=== PATIENT | female | born 1990 | race Asian ===

== ENCOUNTER 2018-07-17 01:57 | Inpatient (IN) | payer BC ==
[~2018-07-17] VITALS: Ht 152.4 cm; Wt 45.0 kg
[~2018-07-17 01:57] MED LIST: IBUP-1222 PO
[2018-07-17] MEDS ORDERED: OXYTOCIN 30U/ 0.9% NaCL 500ML 500 ML ONE (02:04)
[2018-07-17] MEDS ORDERED: NEWBORN KIT ONE (02:04)
[2018-07-17] MEDS ORDERED: OXYTOCIN 30U/ 0.9% NaCL 500ML 500 ML IV ONE (02:20)
[2018-07-17] MEDS ORDERED: AMPICILLIN 2 GM in SODIUM CHLORIDE 0.9% 100 ML IVPB STA (02:20)
[2018-07-17] MEDS ORDERED: LACTATED RINGERS 1,000 ML IV SCH (02:20)
[2018-07-17] MEDS ORDERED: FENTANYL PF 100 MCG/2ML IV PRN (02:30)
[2018-07-17] MEDS ORDERED: FENTANYL PF 100 MCG/2ML IVPush PRN (02:30)
[2018-07-17] MEDS ORDERED: ONDANSETRON 2MG/ML, 2ML IVPush PRN (02:30)
[2018-07-17] MEDS ORDERED: CALCIUM CARBONATE 500 MG TAB.CHEW PO PRN (02:30)
[2018-07-17 02:38] LABS: BASOPHILS # (AUTO) 0.03 x10^3/uL (0-0.1); BASOPHILS % (AUTO) 0 % (0-1); EOSINOPHILS # (AUTO) 0.08 x10^3/uL (0-0.4); EOSINOPHILS % (AUTO) 1 % (1-7); LYMPHOCYTES # (AUTO) 2.37 x10^3/uL (1-3.4); LYMPHOCYTES % (AUTO) 30 % (22-44); MD NO; MEAN CORPUSCULAR VOLUME 94.3 fL (80-100); MONOCYTES # (AUTO) 0.44 x10^3/uL (0.2-0.8); MONOCYTES % (AUTO) 6 % (2-9); NEUTROPHILS # (AUTO) 4.98 x10^3/uL (1.8-6.8); NEUTROPHILS % (AUTO) 63 % (42-75); PLATELET COUNT 169 x10^3/uL (130-400); RED BLOOD COUNT 4.11 x10^6/uL (3.82-5.3); RED CELL DISTRIBUTION WIDTH 13.4 % (9.6-15.2)
[2018-07-17] MEDS ORDERED: LIDOCAINE 1%, 20ML ONE (02:38)
[2018-07-17] MEDS ORDERED: MISOPROSTOL 200 MCG TABLET ONE (02:38)
[2018-07-17] MEDS ORDERED: IBUPROFEN 600 MG TABLET ONE (03:01)
[2018-07-17] MEDS: OXYTOCIN 30U/ 0.9% NaCL 500ML 500 ML IV SCH ×3 (03:02→23:02)
[2018-07-17] MEDS: IBUPROFEN 600 MG TABLET PO PRN ×2 (03:05→09:21)
[2018-07-17] MEDS ORDERED: METHYLERGONOVINE 0.2 MG/ML IM PRN (03:30)
[2018-07-17] MEDS ORDERED: RHOGAM FROM BLOOD BANK 1 NOTE EA IM/IV ONE (03:30)
[2018-07-17] MEDS ORDERED: CARBOPROST TROMETHAMINE 250 MCG/ML, 1ML IM PRN (03:30)
[2018-07-17] MEDS ORDERED: ACETAMINOPHEN 325 MG TABLET PO PRN (03:30)
[2018-07-17] MEDS ORDERED: OXYcodone/APAP 5/325MG TABLET PO PRN ×2 (03:30)
[2018-07-17] MEDS ORDERED: MEASLES,MUMPS&RUBELLA VACC/PF 0.5 ML SQ PRN (03:30)
[2018-07-17] MEDS ORDERED: MISOPROSTOL 200 MCG TABLET PR PRN (03:30)
[2018-07-17] MEDS ORDERED: DIPH,PERTUSS(ACELL),TET VAC/PF NC IM-VACC PRN (03:30)
[2018-07-17 04:40] VITALS: BP 137/83
[2018-07-17] MEDS ORDERED: AMPICILLIN 1 GM in SODIUM CHLORIDE 0.9% 100 ML IVPB SCH (06:20)
[2018-07-17 08:16] VITALS: BP 121/74
[2018-07-17] MEDS: DOCUSATE 100 MG CAPSULE PO PRN ×2 (09:21→20:38)
[2018-07-17] MEDS: PRENATAL VIT/IRON/FA 1 EACH TABLET PO SCH (09:21)
[2018-07-17 10:37] LABS: MEAN CORPUSCULAR HEMOGLOBIN 31.4 pg (27.0-34.8); MEAN CORPUSCULAR HGB CONC 33.5 g/dL (32.4-35.8); MEAN CORPUSCULAR VOLUME 93.9 fL (80-100); MEAN PLATELET VOLUME 9.4 fL (7.4-10.4); PLATELET COUNT 149 x10^3/uL (130-400); RED BLOOD COUNT 3.87 x10^6/uL (3.82-5.3); RED CELL DISTRIBUTION WIDTH 13.4 % (9.6-15.2)
[2018-07-17 10:56] LABS: BASOPHILS # (AUTO) 0.03 x10^3/uL (0-0.1); BASOPHILS % (AUTO) 0 % (0-1); EOSINOPHILS # (AUTO) 0.05 x10^3/uL (0-0.4); EOSINOPHILS % (AUTO) 0 % (1-7); LYMPHOCYTES # (AUTO) 1.23 x10^3/uL (1-3.4); LYMPHOCYTES % (AUTO) 11 % (22-44); MD SCAN; MONOCYTES # (AUTO) 0.52 x10^3/uL (0.2-0.8); MONOCYTES % (AUTO) 5 % (2-9); NEUTROPHILS # (AUTO) 9.06 x10^3/uL (1.8-6.8); NEUTROPHILS % (AUTO) 83 % (42-75)
[2018-07-17 11:57] VITALS: BP 115/73
[2018-07-17 16:23] VITALS: BP 111/70
[2018-07-17 20:30] VITALS: BP 133/81
[2018-07-18] MEDS: IBUPROFEN 600 MG TABLET PO PRN ×2 (00:19→10:22)
[2018-07-18 00:25] VITALS: BP 116/71
[2018-07-18] MEDS: PRENATAL VIT/IRON/FA 1 EACH TABLET PO SCH (08:30)
[2018-07-18] MEDS: DOCUSATE 100 MG CAPSULE PO PRN (08:51)
[2018-07-18] MEDS: OXYTOCIN 30U/ 0.9% NaCL 500ML 500 ML IV SCH (09:02)
[2018-07-18] MEDS ORDERED: IBUP-1222 PO (09:59)
== END 2018-07-18 10:24 | disposition home or self-care (01) | DRG 807 ==
LOC: LDOP 01:57 → LDIP 02:19 → 2NW 04:09
PROVIDERS: ADMIT Obstetrics & Gynecology; ATTEND Obstetrics & Gynecology
PROC: 10E0XZZ Delivery of Products of Conception, External Approach (ICD-10-PCS; principal; 2018-07-17)
PROC: 0W8NXZZ Division of Female Perineum, External Approach (ICD-10-PCS; 2018-07-17)
DX: O99.824 Streptococcus B carrier state complicating childbirth (principal); Z37.0 Single live birth; Z3A.40 40 weeks gestation of pregnancy
CPT/HCPCS: 36415; 85025; 86850; 86900; 99285; G0378; J0290; J2590; J7120

== ENCOUNTER 2020-05-24 08:22 | Inpatient (IN) | payer BC ==
[~2020-05-24] VITALS: Ht 152.4 cm; Wt 60.0 kg
[2020-05-28] MEDS ORDERED: PREN1TAB60 PO (12:28)
[2020-05-28] MEDS ORDERED: METOCLOPRAMIDE 5 MG/ML, 2ML IVPush PRN (12:30)
[2020-05-28] MEDS ORDERED: SODIUM CITRATE/CITRIC ACID 30 ML UDC PO PRN (12:30)
[2020-05-28] MEDS ORDERED: OXYTOCIN 30U/ 0.9% NaCL 500ML 500 ML IV ONE (12:30)
[2020-05-28] MEDS ORDERED: TERBUTALINE 1 MG/ML, 1ML SQ PRN (12:30)
[2020-05-28] MEDS ORDERED: OXYTOCIN 30U/ 0.9% NaCL 500ML 500 ML IV PRN (12:30)
[2020-05-28] MEDS ORDERED: TERBUTALINE 1 MG/ML, 1ML IVPush PRN (12:30)
[2020-05-28] MEDS ORDERED: LACTATED RINGERS 1,000 ML IV SCH (12:30)
[2020-05-28] MEDS ORDERED: FENTANYL PF 100 MCG/2ML IVPush PRN (12:30)
[2020-05-28] MEDS ORDERED: ONDANSETRON 2MG/ML, 2ML IVPush PRN (12:30)
[2020-05-28 12:58] VITALS: BP 134/96
[2020-05-28] MEDS ORDERED: PLEASE ENTER HEIGHT AND WEIGHT MC SCH (13:00)
[2020-05-28 13:03] LABS: BASOPHILS % (AUTO) 0 % (0-1); EOSINOPHILS % (AUTO) 1 % (1-7); LYMPHOCYTES % (AUTO) 30 % (22-44); MEAN CORPUSCULAR HGB CONC 34.6 g/dL (32.4-35.8); MEAN PLATELET VOLUME 10.4 fL (7.4-10.4); MONOCYTES % (AUTO) 7 % (2-9); NEUTROPHILS % (AUTO) 62 % (42-75); PLATELET COUNT 164 x10^3/uL (130-400); RED BLOOD COUNT 4.42 x10^6/uL (3.82-5.3); RED CELL DISTRIBUTION WIDTH 13.9 % (9.6-15.2)
[2020-05-28 13:06] LABS: ALBUMIN 2.7 g/dL (3.4-5.0); ANION GAP 5 mmol/L (5-15); CALCIUM 8.7 mg/dL (8.5-10.1); CHLORIDE 111 mmol/L (98-107)
[2020-05-28 13:10] LABS: ALANINE AMINOTRANSFERASE 19 U/L (12-78); ALKALINE PHOSPHATASE 209 U/L (45-117); BILIRUBIN,TOTAL 0.4 mg/dL (0.2-1.0); CREATININE 0.68 mg/dL (0.55-1.02); TOTAL PROTEIN 6.3 g/dL (6.4-8.2)
[2020-05-28] MEDS ORDERED: MISOPROSTOL 200 MCG TABLET ONE (13:11)
[2020-05-28] MEDS ORDERED: OXYTOCIN 30U/ 0.9% NaCL 500ML 500 ML ONE ×2 (13:11→19:07)
[2020-05-28] MEDS ORDERED: NEWBORN KIT ONE (13:11)
[2020-05-28] MEDS ORDERED: LIDOCAINE 1%, 20ML ONE (13:11)
[2020-05-28 13:37] LABS: MD SCAN
[2020-05-28 14:37] LABS: CREATININE,URINE RANDOM 41.6 mg/dL
[2020-05-28 14:39] LABS: MICROSCOPIC AUTO
[2020-05-28] MEDS ORDERED: FENTANYL PF 100 MCG/2ML ONE ×2 (17:08→18:16)
[2020-05-28] MEDS: FENTANYL PF 100 MCG/2ML IV PRN ×2 (17:11→18:18)
[2020-05-28] MEDS ORDERED: CARBOPROST TROMETHAMINE 250 MCG/ML, 1ML IM PRN (19:00)
[2020-05-28] MEDS ORDERED: GLYCERIN ADULT SUPP PR PRN (19:00)
[2020-05-28] MEDS ORDERED: ACETAMINOPHEN 325 MG TABLET PO PRN (19:00)
[2020-05-28] MEDS ORDERED: IBUPROFEN 800 MG TABLET PO PRN (19:00)
[2020-05-28] MEDS ORDERED: TRANEXAMIC ACID 100 MG/ML, 10ML IV ONE (19:00)
[2020-05-28] MEDS ORDERED: METHYLERGONOVINE 0.2 MG/ML IM PRN (19:00)
[2020-05-28] MEDS ORDERED: ONDANSETRON 2MG/ML, 2ML IV PRN (19:00)
[2020-05-28] MEDS ORDERED: OXYcodone IR 5MG TABLET PO PRN ×2 (19:00)
[2020-05-28] MEDS ORDERED: MISOPROSTOL 200 MCG TABLET PO PRN (19:00)
[2020-05-28] MEDS ORDERED: IBUPROFEN 600 MG TABLET PO PRN (19:00)
[2020-05-28] MEDS ORDERED: METOCLOPRAMIDE 5 MG/ML, 2ML IV PRN (19:00)
[2020-05-28] MEDS ORDERED: OXYcodone/APAP 5/325MG TABLET PO PRN ×2 (19:00)
[2020-05-28] MEDS ORDERED: BISACODYL 10 MG SUPP PR PRN (19:00)
[2020-05-28] MEDS ORDERED: DOCUSATE 100 MG CAPSULE PO PRN (19:00)
[2020-05-28] MEDS ORDERED: SIMETHICONE 80 MG CHEW TAB PO PRN (19:00)
[2020-05-28] MEDS ORDERED: IBUPROFEN 600 MG TABLET ONE (19:07)
[2020-05-28] MEDS ORDERED: hydrALAzine 20 MG/ML, 1ML ONE ×2 (19:24→20:07)
[2020-05-28] MEDS ORDERED: hydrALAzine 20 MG/ML, 1ML IVPush ONE ×3 (19:30)
[2020-05-28] MEDS ORDERED: LABETALOL 20 MG/4 ML IVPush ONE (19:30)
[2020-05-28] MEDS: OXYTOCIN 30U/ 0.9% NaCL 500ML 500 ML IV SCH (19:35)
[2020-05-28 23:00] VITALS: BP 134/80
[2020-05-29 03:00] VITALS: BP 126/83
[2020-05-29] MEDS: OXYTOCIN 30U/ 0.9% NaCL 500ML 500 ML IV SCH ×2 (05:00→15:00)
[2020-05-29 06:31] LABS: BASOPHILS % (AUTO) 0 % (0-1); EOSINOPHILS % (AUTO) 0 % (1-7); LYMPHOCYTES % (AUTO) 17 % (22-44); MEAN CORPUSCULAR HEMOGLOBIN 32.1 pg (27.0-34.8); MEAN CORPUSCULAR HGB CONC 33.9 g/dL (32.4-35.8); MEAN PLATELET VOLUME 9.9 fL (7.4-10.4); MONOCYTES % (AUTO) 5 % (2-9); NEUTROPHILS % (AUTO) 77 % (42-75); PLATELET COUNT 148 x10^3/uL (130-400); RED BLOOD COUNT 4.25 x10^6/uL (3.82-5.3); RED CELL DISTRIBUTION WIDTH 13.5 % (9.6-15.2)
[2020-05-29 06:53] LABS: MD NO
[2020-05-29 08:08] VITALS: BP 138/83
[2020-05-29] MEDS ORDERED: PRENATAL VIT/IRON/FA 1 EACH TABLET PO SCH (09:00)
[2020-05-29 12:10] VITALS: BP 136/84
[2020-05-29 16:06] VITALS: BP 136/80
[2020-05-29] MEDS ORDERED: IBUP-1222 PO (16:18)
== END 2020-05-29 18:59 | disposition home or self-care (01) | DRG 807 ==
LOC: LDIP 05-28 12:16 → 2NW 05-28 22:53
PROVIDERS: ADMIT Obstetrics & Gynecology; ATTEND Obstetrics & Gynecology
PROC: 10E0XZZ Delivery of Products of Conception, External Approach (ICD-10-PCS; principal; 2020-05-28)
DX: O48.0 Post-term pregnancy (principal); Z37.0 Single live birth; O13.4 Gestational [pregnancy-induced] hypertension without significant proteinuria, complicating childbirth; Z3A.40 40 weeks gestation of pregnancy
CPT/HCPCS: 36415; 80053; 81001; 82570; 84156; 84550; 85025; 86592; 86850; 86900; G0378; J3010; J0360; J2590; J7120

== ENCOUNTER → 2020-05-24 | Outpatient (CLI) | payer BC | END | disposition home or self-care (01) | LOC: STAR 15:10 | PROVIDERS: ATTEND Obstetrics & Gynecology | DX: Z20.828 Contact with and (suspected) exposure to other viral communicable diseases (principal) | CPT/HCPCS: 87635 ==